=== PATIENT | female | born 1960 | race African-American/Black ===

== ENCOUNTER 2017-03-20 14:54 | Emergency (ER) | payer MEDICARE, MEDICAID ==
[~2017-03-20] VITALS: Ht 157.5 cm; Wt 91.0 kg
[~2017-03-20 14:54] MED LIST: ASPIRIN PO; BENA5TAB3 PO; CLONIDINE PO; METFORMIN PO; PROCARDIA
[2017-03-20] MEDS ORDERED: TRAMADOL 50MG TABLET PO ONE (16:00)
[2017-03-20] MEDS ORDERED: ONDANSETRON 4MG ODT PO ONE (16:00)
[2017-03-20 16:23] LABS: GLUCOSE URINE NEGATIVE (NEGATIVE); KETONES URINE NEGATIVE (NEGATIVE); LEUKOCYTE ESTERASE URINE NEGATIVE (NEGATIVE); NITRITE URINE NEGATIVE (NEGATIVE); OCCULT BLOOD URINE NEGATIVE (NEGATIVE); PH URINE 6.5 (4.5-8.0); PROTEIN URINE NEGATIVE (NEGATIVE); SPECIFIC GRAVITY URINE 1.015 (1.005-1.030); UROBILINOGEN URINE 0.2 E.U./dL (0.2-1.0)
[2017-03-20 16:30] LABS: CLARITY URINE CLEAR (CLEAR); COLOR URINE YELLOW (YELLOW)
[2017-03-20 17:30] VITALS: BP 138/52
== END 2017-03-20 17:50 | disposition home or self-care (01) ==
LOC: ER 15:50
DX: R10.84 Generalized abdominal pain (principal); R11.0 Nausea; I11.9 Hypertensive heart disease without heart failure; I51.9 Heart disease, unspecified; Z95.5 Presence of coronary angioplasty implant and graft; Z88.0 Allergy status to penicillin; Z88.8 Allergy status to other drugs, medicaments and biological substances; Z79.82 Long term (current) use of aspirin
CPT/HCPCS: 81003; 99283; Q0162